=== PATIENT | male | born 1945 | race Caucasian/White ===

== ENCOUNTER 2022-10-24 10:30 | Outpatient (RCR) | payer MEDICARE, SELFPAY ==
--- NOTE | 2022-09-27 15:38 | HP.OTEVAL_ITS ---
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 Date of Evaluation: 09/26/22 Occupational Therapist Student: Agueda Huston Subjective Subjective: Mr. Serena Chao is a 77 year old male now s/p endoscopic right carpel tunnel release, right cubital tunnel release, right ring finger subtotal frederick fasciectomy secondary to Dupuytren's contracture at the ring finger PIP joint on 08/16/2022. Pt presents with decreased ROM in R hand. Pt reports performing median nerve glide exercises with good results. Pt just moved from [place] where he was living alone and now living with a friend. Pt reports no pain at initial time of eval. Pt reports goal of returning to golf and ability to fern picker pills more easily. ADLs Dressing: Button shirt and Pants Comments: has slip-on shoes Fasteners: Buttons and Zippers Comments: uses velcro Eating: Cut food Kitchen: Chop with knife Miscellaneous: Handle money (change), Take things out of wallet and Shuffle cards Comments: Strength and numbness limiting ability to pick pills Objective Objective/Observation: Pt noted with yellow scarring at site of palmar side of middle finger on R hand, pt edu in scar education and care to improve healing. ROM Wrist: right flexion 0 extension 40 left 59 flexion 30 extension CMC: right 25 left 30 MP: right 55 left 36 IP: right 73 left 76 Radial Abduction: right unable left 50 Palmar Abduction: good bilateral Opposition: Kapandji opposition scale right/left 10 MP: R IF 54 MF 73 RF 70 LF 63 L IF 70 MF 70 RF 80 LF 65 PIP: R IF 95 MF 95 RF 87 LF 90 L IF 55 MF 63 RF 92 LF 96 DIP: R IF 40 MF 18 RF 5 LF 28 L IF 55 MF 48 RF 27 LF 26 ROM Comments: Right radial 15 ulnar 29 - deviation pain when performing radial deviation Extension PIP R-30, -35 -30, -30 extension, L hand 0 Strength Interactive Multimedia Designer: right 32# left 75# Lateral Pinch: right 6# left 10# Tripod Pinch: right unable left 6# Tip-to-Tip Pinch: right 2# left 7# Sensation Thumb: R 3.84 L 3.84 Index: R 3.84 L 3.22 Middle: R 3.22 L 3.22 Ring: R 3.22 L 3.22 Little: R 3.22 L 3.22 Nine Hole Peg Right: 76 secs Left: 32 secs Comments: radial deviation Quick DASH-Disab of Arm,Shoulder& Hand Quick DASH Score: 25.0000 Goals Goal:: Pt will improve his dexterity and coordination with R hand to perform ADL tasks IND. Goal:: Pt will be able to perform medication management tasks IND. Goal:: Pt will increase radial abduction by 30 degrees to be able to fern picker a cup. Goal:Daily scar massage when approriate: Yes Goal:ROM equal to unaffected hand: Yes Goal:Interactive Multimedia Designer/Pinch strength at least 75% of unaffected hand: Yes Goal:No pain with affected hand use: Yes Goal:PIP Circumferences equal to unaffected hand: Yes Goal:Full use of affected hand in daily activities including work: Yes Rehabilitation General Assessment: Mr. Chao demonstrates decreased range of motion, strength, and lose of sensation in right and minimal lose of sensation in L hand. This inhibits to patients ability to perform ADLs and IADLs. Pt will benefit from skilled OT services to return to these activities and improve his quality of life. Pt educated on scar management, exercises, occupational therapy, and OT plan of care. Pt agreeable to plan of care. This evaluation was supervised and approved by Elaine Viera OTR/Zuri, CHT. Rehabilitation Potential: Good Anticipated Interventions Anticipated Interventions: A/AAROM/PROM, Strengthening, Scar Care, Massage, Triggerpoint Release, Wound Care, Modalities, Orthoses, Joint Protection/Energy Conservation, Ergonomic Education, Fine Motor Coord/Chucky, Neuro Reeducation, Sensory Stimulation, ADL Training, Education re Skin Care and Precautions and Home Program Visit Plan Frequency: 2-3x /Week Duration: 4-6 Weeks TEXT: Thank you for the opportunity to evaluate your patient. For Medicare and Medicare HMO plans, please review the plan of care and approve it. It will need to be FAXED BACK to us at [phone] for Medicare purposes. Please let me know if there are questions or concerns regarding this plan of care. Physician Signature: Date:
--- NOTE | 2023-03-13 07:48 | HP.OT.NRP ---
Patient Information Patient Information: SERENA CHAO was seen in my office for initial evaluation on 09/26/22. The following Plan of Care was established for this patient: POC Established Initial Frequency: 2-3x /Week Initial Duration: 4-6 Weeks Plan: Continue POC: 4-6 weeks (2-3x week) Get desk interviewer strength Anticipated Interventions Anticipated Interventions: A/AAROM/PROM, Strengthening, Scar Care, Massage, Triggerpoint Release, Wound Care, Modalities, Orthoses, Joint Protection/Energy Conservation, Ergonomic Education, Fine Motor Coord/Chucky, Neuro Reeducation, Sensory Stimulation, ADL Training, Education re Skin Care and Precautions and Home Program Last Seen Last Seen: This patient was last seen in our office 10/24/22. Pertinent comments regarding their Occupational therapy will appear below: pt was seen for 8 OT sessions. At this time he has not scheduled further apts and due to time lapse in services is d/c. At this point I will be discontinuing this patient from occupational therapy. I would be happy to see this patient again in the future if found appropriate by the physician. Thank you! Elaine Viera, OTR/L, CHT
== END 2022-10-24 19:00 | disposition home or self-care (01) ==
LOC: OT 10:30
DX: M72.0 Palmar fascial fibromatosis [Dupuytren] (principal)
CPT/HCPCS: 97110; 97140; 97166; 97530

== ENCOUNTER → 2024-12-21 | Outpatient (CLI) | payer MEDICARE, SELFPAY ==
--- NOTE | 2024-12-21 17:25 | RAD_ITS ---
PROCEDURE: CHEST PA AND LATERAL 12/21/2024 REASON FOR EXAM: COUGH TECHNIQUE: Procedure Code: RADCXR Modality: DX Procedure: CHEST PA AND LATERAL FINDINGS: The heart is normal in size. The lungs are clear. No acute osseous abnormalities. RAD/Chest PA and Lateral IMPRESSION: No acute cardiopulmonary abnormalities. Reading Location: [id number]
== END | disposition home or self-care (01) ==
LOC: MTRAD 17:25
PROVIDERS: Referring Provider Physician Assistant; Visit Provider Physician Assistant
DX: R05.9 Cough, unspecified (principal)
CPT/HCPCS: 71046

== ENCOUNTER 2024-12-24 10:00 | Emergency (ER) | payer MEDICARE, SELFPAY ==
[2024-12-24 10:01] VITALS: BP 153/61; PULSE 60; RESP 14; TEMP 36.2; O2SAT 98
[2024-12-24 10:10] VITALS: BMI 35.4
--- NOTE | 2024-12-24 10:32 | EDS_ITS ---
HPI HPI - URI History of Present Illness Chief Complaint: Cough Informant: patient Onset/Context/Timing Onset: Weeks (1) Context: Gradual Onset Timing: Continuous Quality: Plugged up Location: Head Worsened by: - (Nothing) Relieved by: - (Nothing) Associated Symptoms Associated Symptoms: Positive for Nasal Congestion, Shortness of Breath and Nonproductive cough; Negative for Headache, Sinus Pressure, Myalgias, Nausea, Vomiting, Diarrhea, Chest Pain, Hemoptysis or Productive Cough Narrative Narrative: Patient presents with cough and upper respiratory congestion that has been getting worse over the past week. Patient states he went to the [facility] clinic on [address]. Patient states he had an x-ray there which was negative. Patient states he was given a prescription for Augmentin. Patient states he does not feel any better. Patient admits to some shortness of breath. Patient denies any sputum production. Patient denies any fevers or chills. Patient denies any nausea, vomiting, or diarrhea. Patient denies any myalgias. Patient is visiting from [place]. Patient states he follows with the [facility] in [place]. 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 ROS ROS ED Constitutional Constitutional ED: Denies chills or fever(s) Eyes Eyes: Denies blurry vision or change in vision ENT ENT ED: Denies rhinorrhea or sore throat Cardiovascular Cardiovascular: Denies chest pain or palpitations Respiratory/Chest Respiratory/Chest: Reports cough and dyspnea Gastrointestinal Gastrointestinal: Denies nausea or vomiting Genitourinary Genitourinary ED: Reports urinary frequency; Denies dysuria or hematuria Musculoskeletal Musculoskeletal: Denies back pain or neck pain Integumentary Denies abscess or rash Neurologic Neurologic: Denies headache(s) or weakness Allergic/Immunologic Allergic/Immunologic ED: Denies mouth swelling or urticaria [facility] Medical History (Updated 12/24/24 @ 12:[address] Moy Aldrich, DO) Acute bronchitis, unspecified Acute sinusitis, unspecified Home Medications ?Medication ?Instructions ?Recorded ?Last Taken ?Type amoxicillin 875 mg-potassium 1 tab PO BID #20 tabs Unknown Rx clavulanate 125 mg tablet apixaban 5 mg tablet (Eliquis) 5 mg PO BID 12/21/24 Un known History diltiazem HCl 240 mg 240 mg PO QDAY 12/21/24 Unkn own History capsule,extended release 24 hr (Cardizem CD) finasteride 5 mg tablet 5 mg PO QDAY 12/21/24 Unknow n History fluconazole 200 mg tablet 200 mg PO QDAY 12/21/24 Unkn own History insulin lispro 100 unit/mL 1 sliding scale dose subcut 12/21/24 Unknown History subcutaneous half-unit pen USEASDIRECTD (Humalog Leandro KwikPen (U-100)) levothyroxine 50 mcg capsule 50 mcg PO QDAY 12/21/24 U nknown History metoprolol succinate 100 mg 100 mg PO Q12H 12/21/24 Un known History tablet,extended release 24 hr potassium chloride 10 mEq 10 meq PO QDAY 12/21/24 Unkn own History capsule,extended release rosuvastatin 40 mg tablet 40 mg PO QDAY 12/21/24 Unkno wn History telmisartan 40 mg tablet 40 mg PO QDAY 12/21/24 Unkno wn History benzonatate 100 mg capsule 200 mg (2 x 100 mg) PO TID PRN PRN 12/24/24 Unknown Rx Cough #20 CAPSULES Allergy/AdvReac Type Severity Reaction Status Date / Time No Known Allergies Allergy Verified 12/24/24 10:01 Surgical History (Updated 12/24/24 @ 10:[address] Moy Aldrich DO) Hx of decompression of ulnar nerve Hx of hand surgery History of carpal tunnel surgery of right wrist History of back surgery Hx of cystoscopy Social History Smoking Status: Former smoker EXAM Physical Exam Const Vital Signs: 12/24/24 10:01 12/24/24 10:10 12/24/24 10:55 Temperature 97.1 F L Temperature Source Temporal Pulse Rate 60 60 Respiratory Rate 14 16 Respiratory Effort Normal Non-Labored Respiratory Depth Normal Respiratory Pattern Normal Normal Blood Pressure 153/61 H Blood Pressure Mean 91 Pulse Ox 98 Oxygen Delivery Method Room Air Room Air 12/24/24 12:01 Temperature Temperature Source Pulse Rate 71 Respiratory Rate 18 Respiratory Effort Respiratory Depth Respiratory Pattern Blood Pressure 136/76 H Blood Pressure Mean 96 Pulse Ox 96 Oxygen Delivery Method Room Air Positive well nourished and well developed General Appearance ED: well developed and NAD HEENT Reports moist mucous membranes normocephalic and atraumatic Face and Sinus: Negative for sinus tenderness Throat: posterior oropharynx normal Eyes PERRL and EOMs intact bilaterally Neck supple and no JVD Resp normal respiratory effort and clear to auscultation bilaterally Cardio Rate: regular rate Rhythm: regular rhythm GI non-tender and non-distended Palpation: soft Neuro oriented x3, CN's II-XII intact bilaterally and no sensory deficits noted Sensorium / Orientation: alert Motor Exam: strength 5/5 throughout Psych mental status grossly normal MDM MDM MDM Narrative Medical decision making narrative: Differential diagnosis includes pneumonia, bronchitis, and viral upper respiratory infection. Chest x-ray will be obtained to assess for pneumonia and bronchitis. COVID-19, influenza, and RSV PCR will be obtained to assess for viral illness. Lab Data Attestation: I reviewed the patient's lab results. Lab results narrative: COVID-19 PCR was reviewed and was negative. Influenza PCR was reviewed and was negative for influenza A and influenza B. RSV PCR was reviewed and was negative. Radiography Diagnostic Testing: Clinical Impression(s) from Imaging Studies Chest X-Ray 12/24/24 10:45 IMPRESSION: Lung hyperinflation and chronic lung changes are again seen. No focal infiltrate is evident. No evidence of pulmonary edema. No pleural effusion or pneumothorax is seen. The cardiomediastinal silhouette is stable, without evidence of cardiomegaly. No interval osseous change is noted. Stable examination. Reading Location: [address] [place] and lateral chest x-ray was obtained. There are 2 views. On my independent interpretation, lung sullivan show chronic changes. There is normal cardiac silhouette. Bony thorax is normal. There is no acute process noted. Radiologist also interpreted the x-ray and agrees. Treatment and Re-Evaluation Narrative: Patient was given a DuoNeb aerosol. Patient was feeling slightly better on reevaluation. Patient was advised of his findings. Patient states he has a rescue inhaler at home. Patient was given a prescription for Tessalon Perles. Patient was instructed to continue the Augmentin as prescribed until gone. Patient was also instructed to continue his fluconazole as prescribed until gone. Patient was instructed to follow-up with his primary care physician when he gets back to [place] next week. Patient was instructed to return if worse in any way. Patient understood and was agreeable with the plan. All questions were answered. Discharge Plan Triage Chief Complaint: Cough ED Provider: Moy Aldrich Dx/Rx/DC Orders Clinical Impression: Viral upper respiratory infection, Cough Instructions: ED URI, Viral W/ Wheezing (Adult) Prescriptions: New benzonatate 100 mg capsule 200 mg PO TID PRN PRN (Reason: Cough) Qty: 20 0RF No Action potassium chloride 10 mEq capsule, extended release 10 meq PO QDAY diltiazem HCl [Cardizem CD] 240 mg capsule,extended release 24hr 240 mg PO QDAY fluconazole 200 mg tablet 200 mg PO QDAY metoprolol succinate 100 mg tablet extended release 24 hr 100 mg PO Q12H telmisartan 40 mg tablet 40 mg PO QDAY finasteride 5 mg tablet 5 mg PO QDAY rosuvastatin 40 mg tablet 40 mg PO QDAY levothyroxine 50 mcg capsule 50 mcg PO QDAY Eliquis 5 mg tablet 5 mg PO BID insulin lispro [Humalog Leandro KwikPen U-100] 100 unit/mL insulin pen, half- unit 1 sliding scale dose subcut USEASDIRECTD amoxicillin-pot clavulanate 875-125 mg tablet 1 tab PO BID Qty: 20 0RF Primary Care Provider: Care Physician,No Primary Referrals: [facility] [Provider Group] - As Needed Care Physician,No Primary [Primary Care Provider, Medical] Doctor,Your [Non-Staff, None] - 1-2 Weeks Print Language: Sinhala Disposition Disposition: Home, Self Care
--- NOTE | 2024-12-24 10:45 | RAD_ITS ---
PROCEDURE: CHEST PA AND LATERAL 12/24/2024 REASON FOR EXAM: COUGH TECHNIQUE: Procedure Code: RADCXR Modality: DX Procedure: CHEST PA AND LATERAL COMPARISON: Chest x-ray of 12/21/2024. RAD/Chest PA and Lateral IMPRESSION: Lung hyperinflation and chronic lung changes are again seen. No focal infiltrate is evident. No evidence of pulmonary edema. No pleural effusion or pneumothorax is seen. The cardiomediastinal silhouette is stable, without evidence of cardiomegaly. No interval osseous change is noted. Stable examination. Reading Location: [id number]
[2024-12-24 10:55] VITALS: PULSE 60; RESP 16
[2024-12-24 12:01] VITALS: BP 136/76; PULSE 71; RESP 18; O2SAT 96
== END 2024-12-24 13:10 | disposition home or self-care (01) ==
PROVIDERS: Emergency Provider Emergency Medicine; Visit Provider Emergency Medicine
DX: J06.9 Acute upper respiratory infection, unspecified (principal); R06.02 Shortness of breath; Z87.891 Personal history of nicotine dependence; R05.9 Cough, unspecified; R35.0 Frequency of micturition
CPT/HCPCS: 71046; 87631; 94640; 99282